=== PATIENT | male | born 1980 | race Caucasian/White ===

== ENCOUNTER 2024-11-12 18:07 | Emergency (ER) | payer MEDICARE ==
[~2024-11-12] VITALS: Ht 175.3 cm; Wt 70.3 kg
[2024-11-12] MEDS ORDERED: Trimethoprim/Sulfamethoxazole DS Tab PO ONE (19:55)
[2024-11-12] MEDS ORDERED: Clindamycin 600mg in D5W 50 ML IV ONE (20:00)
[2024-11-12 20:23] LABS: BASOPHILS ABSOLUTE AUTO 0.02 K/mm3 (0.00-0.23); BASOPHILS PERCENT AUTO 0 % (0-2); EOSINOPHILS ABSOLUTE AUTO 0.11 K/mm3 (0.00-0.68); EOSINOPHILS PERCENT AUTO 2 % (0-6); Hematocrit 35.2 % (37.0-53.0); Hemoglobin 11.7 g/dL (13.5-17.5); IMMATURE GRAN ABSOLUTE AUTO 0.01 K/mm3 (0.00-0.10); IMMATURE GRAN PERCENT AUTO 0 % (0-1); LYMPHOCYTES ABSOLUTE AUTO 2.18 K/mm3 (0.84-5.20); LYMPHOCYTES PERCENT AUTO 42 % (21-46); MONOCYTES ABSOLUTE AUTO 0.35 K/mm3 (0.16-1.47); MONOCYTES PERCENT AUTO 7 % (4-13); Mean Corpuscular HGB Conc 33.2 g/dL (31.5-36.5); Mean Corpuscular Volume 89 fL (80-100); NEUTROPHILS ABSOLUTE AUTO 2.48 K/mm3 (1.96-9.15); NEUTROPHILS PERCENT AUTO 48 % (41-73); NRBC ABSOLUTE 0.00 K/mm3 (0.00-0.02); NRBC Auto 0.0 /100 WBC (0.0-0.2); Platelet Count 389 K/mm3 (150-400); RDW Coefficient Variation 13.3 % (11.7-14.2); RDW Standard Deviation 44.0 fL (35.1-46.3)
[2024-11-12 20:43] LABS: Anion Gap 6 mmol/L (3-11); Blood Urea Nitrogen 13 mg/dL (8-24); C-REACTIVE PROTEIN, EXT RANGE <0.290 mg/dL (0.000-0.300); CO2, Blood 26 mmol/L (21-32); Calcium, Blood 8.8 mg/dL (8.5-10.1); Chloride, Blood 106 mmol/L (98-108); Creatinine, Blood 0.66 mg/dL (0.60-1.20); Glucose, Blood 107 mg/dL (70-99); Potassium, Blood 3.8 mmol/L (3.5-5.5); Sodium, Blood 134 mmol/L (136-145)
== END 2024-11-12 21:56 | disposition home or self-care (01) ==
LOC: ER 18:07
PROVIDERS: Emergency Medicine
DX: M86.9 Osteomyelitis, unspecified (principal); L03.011 Cellulitis of right finger; F17.210 Nicotine dependence, cigarettes, uncomplicated
CPT/HCPCS: 10060; 26010; 73140; 80048; 85025; 85651; 86140; 99284-25

== ENCOUNTER 2024-11-14 00:54 | Inpatient (IN) | payer MEDICARE ==
[~2024-11-14] VITALS: Ht 175.3 cm; Wt 65.3 kg
[2024-11-14 03:01] LABS: BASOPHILS ABSOLUTE AUTO 0.02 K/mm3 (0.00-0.23); BASOPHILS PERCENT AUTO 0 % (0-2); EOSINOPHILS ABSOLUTE AUTO 0.09 K/mm3 (0.00-0.68); EOSINOPHILS PERCENT AUTO 2 % (0-6); Hematocrit 36.5 % (37.0-53.0); Hemoglobin 12.4 g/dL (13.5-17.5); IMMATURE GRAN ABSOLUTE AUTO 0.01 K/mm3 (0.00-0.10); IMMATURE GRAN PERCENT AUTO 0 % (0-1); LYMPHOCYTES ABSOLUTE AUTO 1.63 K/mm3 (0.84-5.20); LYMPHOCYTES PERCENT AUTO 33 % (21-46); MONOCYTES ABSOLUTE AUTO 0.38 K/mm3 (0.16-1.47); MONOCYTES PERCENT AUTO 8 % (4-13); Mean Corpuscular HGB Conc 34.0 g/dL (31.5-36.5); Mean Corpuscular Volume 89 fL (80-100); NEUTROPHILS ABSOLUTE AUTO 2.82 K/mm3 (1.96-9.15); NEUTROPHILS PERCENT AUTO 57 % (41-73); NRBC ABSOLUTE 0.00 K/mm3 (0.00-0.02); NRBC Auto 0.0 /100 WBC (0.0-0.2); Platelet Count 385 K/mm3 (150-400); RDW Coefficient Variation 13.2 % (11.7-14.2); RDW Standard Deviation 42.7 fL (35.1-46.3)
[2024-11-14] MEDS ORDERED: NS 1,000 ML IV SCH (03:10)
[2024-11-14] MEDS ORDERED: Vancomycin (Pharmacy Consult) IV PRN (03:15)
[2024-11-14] MEDS ORDERED: Cefepime HCl 2,000 MG in NS 100 ML IV ONE (03:15)
[2024-11-14] MEDS ORDERED: FentaNYL Citrate 50 MCG/ML 2 ML Injection IV PRN (03:15)
[2024-11-14] MEDS ORDERED: Diazepam 5 MG / ML 2ML SYR IV ONE ×2 (03:15→04:40)
[2024-11-14 03:20] LABS: Alanine Aminotransfer (ALT/SGP 32.0 U/L (12-78); Albumin, Blood 3.2 g/dL (3.4-5.0); Albumin/Globulin Ratio 1.0 (0.8-1.8); Anion Gap 5.0 mmol/L (3-11); Aspartate Aminotrans (AST/SGOT 21.0 U/L (12-37); Bilirubin, Total 0.4 mg/dL (0.1-1.0); Blood Urea Nitrogen 7.0 mg/dL (8-24); C-Reactive Protein, High Sens. 0.508 mg/L (0.000-3.000); CO2, Blood 29.0 mmol/L (21-32); Calcium, Blood 8.7 mg/dL (8.5-10.1); Chloride, Blood 110.0 mmol/L (98-108); Creatinine, Blood 0.58 mg/dL (0.60-1.20); Globulin, Blood 3.3 g/dL (2.2-4.0); Glucose, Blood 137.0 mg/dL (70-99); Potassium, Blood 3.6 mmol/L (3.5-5.5); Sodium, Blood 140.0 mmol/L (136-145); Total Protein, Blood 6.5 g/dL (6.4-8.2)
[2024-11-14] MEDS ORDERED: FLU VACC TS2025-26(6MOS UP)/PF 45 MCG/0.5 ML SYRINGE IM SCH (05:00)
[2024-11-14] MEDS ORDERED: Vancomycin (Pharmacy Consult) IV SCH (05:05)
[2024-11-14] MEDS ORDERED: Naloxone HCl 0.4MG / ML 1ML Vial IV PRN (05:05)
[2024-11-14] MEDS ORDERED: Morphine Sulfate 4 MG/1 ML Injection IV PRN (05:05)
[2024-11-14] MEDS ORDERED: HYDROcodone 5-APAP 325 TAB PO PRN (05:05)
[2024-11-14] MEDS ORDERED: Magnesium Hydroxide Conc 10 ML UDC PO PRN (05:05)
[2024-11-14] MEDS ORDERED: Lactobacil 2-S.Thermo-Bifido 1 1 Cap PO SCH (09:00)
[2024-11-14 11:15] LABS: IMMATURE RETIC FRACTION 5.3 % (2.3-16.0); RETIC HGB EQUIVALENT 34.5 pg (28.20-36.60); RETICULOCYTE ABSOLUTE 0.0276 M/mm3 (0.0200-0.1100); RETICULOCYTE COUNT PERCENT 0.7 % (0.50-2.50)
[2024-11-14 12:00] LABS: U Amphetamine Screen Not Detected; U Barbiturate Screen Not Detected; U Benzodiazapine Screen DETECTED; U Buprenorphine Screen Not Detected; U Cannabinoids Screen DETECTED; U Cocaine Screen Not Detected; U Methadone Screen Not Detected; U Methamphetamine Screen Not Detected; U Opiates Screen Not Detected; U Oxycodone Screen Not Detected; U Phencyclidine Screen Not Detected
[2024-11-14 12:23] LABS: Ferritin, Serum 93.0 ng/mL (26-388); Total Iron Binding Capacity 365.0 ug/dL (250-450)
[2024-11-14 15:11] VITALS: BP 123/87
[2024-11-14] MEDS ORDERED: Cyanocobalamin 1000 MCG/ML 1ML Vial IM SCH (17:00)
[2024-11-14] MEDS ORDERED: Ascorbic Acid 250 MG Chew PO SCH (17:00)
[2024-11-14] MEDS ORDERED: Cefepime HCl 2,000 MG in NS 100 ML IV SCH (19:00)
[2024-11-14 19:41] VITALS: BP 130/83
[2024-11-14] MEDS ORDERED: NS 250 ML IV PRN (21:05)
[2024-11-15 04:26] VITALS: BP 109/58
[2024-11-15 06:19] LABS: Hematocrit 36.4 % (37.0-53.0); Hemoglobin 11.8 g/dL (13.5-17.5); Mean Corpuscular HGB Conc 32.4 g/dL (31.5-36.5); Mean Corpuscular Volume 90 fL (80-100); NRBC ABSOLUTE 0.00 K/mm3 (0.00-0.02); NRBC Auto 0.0 /100 WBC (0.0-0.2); Platelet Count 339 K/mm3 (150-400); RDW Coefficient Variation 13.3 % (11.7-14.2); RDW Standard Deviation 44.3 fL (35.1-46.3)
[2024-11-15 06:47] LABS: Anion Gap 4.0 mmol/L (3-11); Blood Urea Nitrogen 15.0 mg/dL (8-24); CO2, Blood 29.0 mmol/L (21-32); Calcium, Blood 8.4 mg/dL (8.5-10.1); Chloride, Blood 109.0 mmol/L (98-108); Creatinine, Blood 0.58 mg/dL (0.60-1.20); Glucose, Blood 117.0 mg/dL (70-99); Potassium, Blood 4.1 mmol/L (3.5-5.5); Sodium, Blood 138.0 mmol/L (136-145)
[2024-11-15 07:36] VITALS: BP 124/81
[2024-11-15 12:46] LABS: Vancomycin, Trough 26.2 ug/mL (5.0-10.0)
[2024-11-15 16:15] VITALS: BP 122/73
[2024-11-15 19:26] VITALS: BP 124/78
[2024-11-15 19:27] VITALS: BP 124/78
[2024-11-16 05:14] LABS: Hematocrit 37.6 % (37.0-53.0); Hemoglobin 12.1 g/dL (13.5-17.5); Mean Corpuscular HGB Conc 32.2 g/dL (31.5-36.5); Mean Corpuscular Volume 92 fL (80-100); NRBC ABSOLUTE 0.00 K/mm3 (0.00-0.02); NRBC Auto 0.0 /100 WBC (0.0-0.2); Platelet Count 346 K/mm3 (150-400); RDW Coefficient Variation 13.3 % (11.7-14.2); RDW Standard Deviation 45.3 fL (35.1-46.3)
[2024-11-16 05:35] LABS: Anion Gap 6.0 mmol/L (3-11); Blood Urea Nitrogen 14.0 mg/dL (8-24); CO2, Blood 28.0 mmol/L (21-32); Calcium, Blood 8.7 mg/dL (8.5-10.1); Chloride, Blood 111.0 mmol/L (98-108); Creatinine, Blood 0.55 mg/dL (0.60-1.20); Glucose, Blood 99.0 mg/dL (70-99); Potassium, Blood 4.1 mmol/L (3.5-5.5); Sodium, Blood 141.0 mmol/L (136-145)
[2024-11-16 07:37] VITALS: BP 111/69
[2024-11-16 14:56] VITALS: BP 120/78
[2024-11-16 17:54] LABS: Vancomycin, Trough 15.6 ug/mL (5.0-10.0)
[2024-11-16 20:37] VITALS: BP 136/82
[2024-11-17] MEDS ORDERED: LORazepam 2 MG/ML 1ML Injection IV ONE (01:50)
[2024-11-17 04:35] VITALS: BP 117/68
[2024-11-17 15:00] VITALS: BP 128/80
[2024-11-17 19:38] VITALS: BP 116/71
[2024-11-18 05:40] VITALS: BP 125/74
[2024-11-18 05:58] LABS: Hematocrit 39.9 % (37.0-53.0); Hemoglobin 12.6 g/dL (13.5-17.5); Mean Corpuscular HGB Conc 31.6 g/dL (31.5-36.5); Mean Corpuscular Volume 95 fL (80-100); NRBC ABSOLUTE 0.00 K/mm3 (0.00-0.02); NRBC Auto 0.0 /100 WBC (0.0-0.2); Platelet Count 303 K/mm3 (150-400); RDW Coefficient Variation 13.5 % (11.7-14.2); RDW Standard Deviation 47.1 fL (35.1-46.3)
[2024-11-18 06:26] LABS: Anion Gap 6 mmol/L (3-11); Blood Urea Nitrogen 21 mg/dL (8-24); CO2, Blood 28 mmol/L (21-32); Calcium, Blood 8.8 mg/dL (8.5-10.1); Chloride, Blood 110 mmol/L (98-108); Creatinine, Blood 0.52 mg/dL (0.60-1.20); Glucose, Blood 110 mg/dL (70-99); Potassium, Blood 4.0 mmol/L (3.5-5.5); Sodium, Blood 140 mmol/L (136-145); Vancomycin, Trough 9.9 ug/mL (5.0-10.0)
[2024-11-18 13:41] LABS: Alanine Aminotransfer (ALT/SGP 41 U/L (12-78); Albumin, Blood 3.4 g/dL (3.4-5.0); Albumin/Globulin Ratio 1.0 (0.8-1.8); Aspartate Aminotrans (AST/SGOT 17 U/L (12-37); Bilirubin, Direct <0.1 mg/dL (0.0-0.3); Bilirubin, Indirect Unable to Calculate mg/dL (0.1-0.7); Bilirubin, Total 0.3 mg/dL (0.1-1.0); Globulin, Blood 3.5 g/dL (2.2-4.0); Total Protein, Blood 6.9 g/dL (6.4-8.2)
[2024-11-18 19:50] VITALS: BP 127/72
[2024-11-18] MEDS ORDERED: Divalproex Sodium 500 MG TABCR PO SCH (21:00)
[2024-11-19] MEDS ORDERED: Cefepime HCl 2,000 MG in NS 100 ML IV SCH (02:00)
[2024-11-19 05:18] VITALS: BP 116/70
[2024-11-19 18:26] VITALS: BP 131/70
[2024-11-19 19:29] VITALS: BP 130/117
[2024-11-20 03:38] VITALS: BP 118/72
[2024-11-20 07:40] VITALS: BP 126/76
[2024-11-20 16:29] VITALS: BP 117/88
[2024-11-20 17:38] LABS: Creatinine, Blood 0.50 mg/dL (0.60-1.20); Vancomycin, Trough 12.7 ug/mL (5.0-10.0)
[2024-11-20 19:49] VITALS: BP 123/65
[2024-11-21] VITALS (12 sets, daily range): BP systolic 103–134; BP diastolic 57–87
[2024-11-21 06:22] LABS: Hematocrit 36.4 % (37.0-53.0); Hemoglobin 11.7 g/dL (13.5-17.5); Mean Corpuscular HGB Conc 32.1 g/dL (31.5-36.5); Mean Corpuscular Volume 92 fL (80-100); NRBC ABSOLUTE 0.00 K/mm3 (0.00-0.02); NRBC Auto 0.0 /100 WBC (0.0-0.2); Platelet Count 271 K/mm3 (150-400); RDW Coefficient Variation 13.6 % (11.7-14.2); RDW Standard Deviation 46.3 fL (35.1-46.3)
[2024-11-21 06:44] LABS: Anion Gap 5.0 mmol/L (3-11); Blood Urea Nitrogen 20.0 mg/dL (8-24); CO2, Blood 27.0 mmol/L (21-32); Calcium, Blood 8.5 mg/dL (8.5-10.1); Chloride, Blood 109.0 mmol/L (98-108); Creatinine, Blood 0.46 mg/dL (0.60-1.20); Glucose, Blood 110.0 mg/dL (70-99); Potassium, Blood 4.2 mmol/L (3.5-5.5); Sodium, Blood 137.0 mmol/L (136-145)
[2024-11-21] MEDS ORDERED: Midazolam HCl 1MG / ML 2ML Vial ONE (13:35)
[2024-11-21] MEDS ORDERED: FentaNYL Citrate 50 MCG/ML 2 ML Injection ONE (13:35)
[2024-11-21] MEDS ORDERED: Ondansetron HCl 2 MG / ML 2ML Vial ONE (13:44)
[2024-11-21] MEDS ORDERED: Dexamethasone Sod Phos 10 MG/ML 1ML VIAL ONE (13:44)
[2024-11-21] MEDS ORDERED: Metoclopramide HCl 5MG / ML 2ML Vial ONE (13:44)
[2024-11-21] MEDS ORDERED: FentaNYL Citrate 50 MCG/ML 2 ML Injection IV PRN ×2 (13:50→13:55)
[2024-11-21] MEDS ORDERED: HYDROmorphone HCl/Pf 1MG SYR IV PRN ×2 (13:50)
[2024-11-21] MEDS ORDERED: Bupivacaine 0.5% HCl 5 MG/ML 30MLVIAL ONE (13:52)
[2024-11-21] MEDS ORDERED: Albuterol 2.5 MG/3 ML VIAL INH PRN (13:55)
[2024-11-21] MEDS ORDERED: Ondansetron HCl 2 MG / ML 2ML Vial IV PRN (13:55)
[2024-11-22 04:53] LABS: BASOPHILS ABSOLUTE AUTO 0.01 K/mm3 (0.00-0.23); BASOPHILS PERCENT AUTO 0 % (0-2); EOSINOPHILS ABSOLUTE AUTO 0.00 K/mm3 (0.00-0.68); EOSINOPHILS PERCENT AUTO 0 % (0-6); Hematocrit 35.2 % (37.0-53.0); Hemoglobin 11.3 g/dL (13.5-17.5); IMMATURE GRAN ABSOLUTE AUTO 0.04 K/mm3 (0.00-0.10); IMMATURE GRAN PERCENT AUTO 0 % (0-1); LYMPHOCYTES ABSOLUTE AUTO 0.99 K/mm3 (0.84-5.20); LYMPHOCYTES PERCENT AUTO 11 % (21-46); MONOCYTES ABSOLUTE AUTO 0.68 K/mm3 (0.16-1.47); MONOCYTES PERCENT AUTO 7 % (4-13); Mean Corpuscular HGB Conc 32.1 g/dL (31.5-36.5); Mean Corpuscular Volume 94 fL (80-100); NEUTROPHILS ABSOLUTE AUTO 7.43 K/mm3 (1.96-9.15); NEUTROPHILS PERCENT AUTO 81 % (41-73); NRBC ABSOLUTE 0.00 K/mm3 (0.00-0.02); NRBC Auto 0.0 /100 WBC (0.0-0.2); Platelet Count 301 K/mm3 (150-400); RDW Coefficient Variation 13.6 % (11.7-14.2); RDW Standard Deviation 46.5 fL (35.1-46.3)
[2024-11-22 05:26] LABS: Anion Gap 7.0 mmol/L (3-11); Blood Urea Nitrogen 15.0 mg/dL (8-24); CO2, Blood 26.0 mmol/L (21-32); Calcium, Blood 9.1 mg/dL (8.5-10.1); Chloride, Blood 108.0 mmol/L (98-108); Creatinine, Blood 0.48 mg/dL (0.60-1.20); Glucose, Blood 166.0 mg/dL (70-99); Potassium, Blood 4.0 mmol/L (3.5-5.5); Sodium, Blood 137.0 mmol/L (136-145)
[2024-11-22 07:30] VITALS: BP 130/73
[2024-11-22 20:15] VITALS: BP 126/84
[2024-11-23 05:47] LABS: Vancomycin, Trough 6.9 ug/mL (5.0-10.0)
[2024-11-23 06:26] VITALS: BP 125/75
[2024-11-23 08:43] VITALS: BP 119/80
[2024-11-23 15:55] VITALS: BP 119/83
[2024-11-23 20:45] VITALS: BP 117/63
[2024-11-24 04:27] VITALS: BP 100/60
[2024-11-24 05:26] LABS: BASOPHILS ABSOLUTE AUTO 0.04 K/mm3 (0.00-0.23); BASOPHILS PERCENT AUTO 1 % (0-2); EOSINOPHILS ABSOLUTE AUTO 0.19 K/mm3 (0.00-0.68); EOSINOPHILS PERCENT AUTO 3 % (0-6); Hematocrit 36.3 % (37.0-53.0); Hemoglobin 11.6 g/dL (13.5-17.5); IMMATURE GRAN ABSOLUTE AUTO 0.02 K/mm3 (0.00-0.10); IMMATURE GRAN PERCENT AUTO 0 % (0-1); LYMPHOCYTES ABSOLUTE AUTO 2.04 K/mm3 (0.84-5.20); LYMPHOCYTES PERCENT AUTO 31 % (21-46); MONOCYTES ABSOLUTE AUTO 0.63 K/mm3 (0.16-1.47); MONOCYTES PERCENT AUTO 9 % (4-13); Mean Corpuscular HGB Conc 32.0 g/dL (31.5-36.5); Mean Corpuscular Volume 94 fL (80-100); NEUTROPHILS ABSOLUTE AUTO 3.76 K/mm3 (1.96-9.15); NEUTROPHILS PERCENT AUTO 56 % (41-73); NRBC ABSOLUTE 0.00 K/mm3 (0.00-0.02); NRBC Auto 0.0 /100 WBC (0.0-0.2); Platelet Count 258 K/mm3 (150-400); RDW Coefficient Variation 13.9 % (11.7-14.2); RDW Standard Deviation 48.0 fL (35.1-46.3)
[2024-11-24 06:15] LABS: Anion Gap 6 mmol/L (3-11); Blood Urea Nitrogen 14 mg/dL (8-24); CO2, Blood 30 mmol/L (21-32); Calcium, Blood 8.7 mg/dL (8.5-10.1); Chloride, Blood 109 mmol/L (98-108); Creatinine, Blood 0.51 mg/dL (0.60-1.20); Glucose, Blood 93 mg/dL (70-99); Potassium, Blood 4.9 mmol/L (3.5-5.5); Sodium, Blood 140 mmol/L (136-145); Vancomycin, Trough 10.1 ug/mL (5.0-10.0)
[2024-11-24 07:32] VITALS: BP 123/70
[2024-11-24 15:37] VITALS: BP 129/77
== END 2024-11-24 16:58 | disposition left against medical advice (07) | DRG 513 ==
LOC: ER 00:54 → MEDS 04:58 → ERHOLD 04:58 → MEDS 15:10
PROVIDERS: Emergency Medicine; Family Medicine; Internal Medicine; Psychiatry & Neurology Psychiatry; Student in an Organized Health Care Education/Training Program; ADMIT Internal Medicine
PROC: 3E03329 Introduction of Other Anti-infective into Peripheral Vein, Percutaneous Approach (ICD-10-PCS; principal; 2024-11-14)
PROC: 0X6N0Z3 Detachment at Right Index Finger, Low, Open Approach (ICD-10-PCS; 2024-11-21)
DX: M86.8X4 Other osteomyelitis, hand (principal); F23 Brief psychotic disorder; I96 Gangrene, not elsewhere classified; E86.0 Dehydration; R00.1 Bradycardia, unspecified; Z53.29 Procedure and treatment not carried out because of patient's decision for other reasons; R41.82 Altered mental status, unspecified; E53.8 Deficiency of other specified B group vitamins; D50.9 Iron deficiency anemia, unspecified; F31.9 Bipolar disorder, unspecified; Z78.1 Physical restraint status
CPT/HCPCS: 36415; 73140; 80048; 80053; 80076; 80202; 82565; 82607; 82728; 82746; 83540; 83550; 83605; 85025; 85027; 85045; 85651; 86141; 86592; 87040; 87071; 87075; 87077; 87147; 87186; 87205; 93005; 93010; 94762; 96365; 96366; 96367; 96375; 96376; 99285-25; A9270; J0692; J1100; J2060; J2250; J2405; J2704; J2765; J3010; J3360; J3373; J3420; J7030; J7040; J7050; J7120

== ENCOUNTER 2024-12-05 09:28 | Emergency (ER) | payer MEDICARE ==
[~2024-12-05] VITALS: Ht 175.3 cm; Wt 68.0 kg
[2024-12-05] MEDS ORDERED: CEPH500 PO (10:46)
== END 2024-12-05 11:10 | disposition home or self-care (01) ==
LOC: ER 09:28
DX: L02.416 Cutaneous abscess of left lower limb (principal)
CPT/HCPCS: 99282

== ENCOUNTER 2025-01-03 15:22 | Inpatient (IN) | payer MEDICARE, OTHER ==
[~2025-01-03] VITALS: Ht 180.3 cm; Wt 59.5 kg
[~2025-01-03 15:22] MED LIST: CEPH500 PO
[2025-01-03 16:10] LABS: BASOPHILS ABSOLUTE AUTO 0.03 K/mm3 (0.00-0.23); BASOPHILS PERCENT AUTO 0 % (0-2); EOSINOPHILS ABSOLUTE AUTO 0.01 K/mm3 (0.00-0.68); EOSINOPHILS PERCENT AUTO 0 % (0-6); Hematocrit 42.2 % (37.0-53.0); Hemoglobin 13.2 g/dL (13.5-17.5); IMMATURE GRAN ABSOLUTE AUTO 0.03 K/mm3 (0.00-0.10); IMMATURE GRAN PERCENT AUTO 0 % (0-1); LYMPHOCYTES ABSOLUTE AUTO 1.46 K/mm3 (0.84-5.20); LYMPHOCYTES PERCENT AUTO 12 % (21-46); MONOCYTES ABSOLUTE AUTO 0.71 K/mm3 (0.16-1.47); MONOCYTES PERCENT AUTO 6 % (4-13); Mean Corpuscular HGB Conc 31.3 g/dL (31.5-36.5); Mean Corpuscular Volume 94 fL (80-100); NEUTROPHILS ABSOLUTE AUTO 10.39 K/mm3 (1.96-9.15); NEUTROPHILS PERCENT AUTO 82 % (41-73); NRBC ABSOLUTE 0.00 K/mm3 (0.00-0.02); NRBC Auto 0.0 /100 WBC (0.0-0.2); Platelet Count 265 K/mm3 (150-400); RDW Coefficient Variation 13.8 % (11.7-14.2); RDW Standard Deviation 47.8 fL (35.1-46.3)
[2025-01-03 16:40] LABS: Ethanol (Alcohol), Blood, Med <3 mg/dL; Salicylate <1.7 mg/dL (2.8-20.0)
[2025-01-03 16:43] LABS: Alanine Aminotransfer (ALT/SGP 88 U/L (12-78); Albumin, Blood 4.2 g/dL (3.4-5.0); Albumin/Globulin Ratio 1.2 (0.8-1.8); Anion Gap 11 mmol/L (3-11); Aspartate Aminotrans (AST/SGOT 89 U/L (12-37); Bilirubin, Total 1.2 mg/dL (0.1-1.0); Blood Urea Nitrogen 101 mg/dL (8-24); CO2, Blood 22 mmol/L (21-32); Calcium, Blood 9.2 mg/dL (8.5-10.1); Chloride, Blood 130 mmol/L (98-108); Creatinine, Blood 1.61 mg/dL (0.60-1.20); Globulin, Blood 3.6 g/dL (2.2-4.0); Glucose, Blood 140 mg/dL (70-99); Potassium, Blood 3.4 mmol/L (3.5-5.5); Sodium, Blood 160 mmol/L (136-145); Total Protein, Blood 7.8 g/dL (6.4-8.2)
[2025-01-03 16:44] LABS: Acetaminophen, Random <2.0 ug/mL (10.0-30.0)
[2025-01-03] MEDS ORDERED: Haloperidol Lactate Inj. 5 MG/ML Injection IM ONE (17:05)
[2025-01-03] MEDS ORDERED: LORazepam 2 MG/ML 1ML Injection IM ONE (17:05)
[2025-01-03] MEDS ORDERED: DiphenhydrAMINE HCl 50 MG/ML 1ML Vial IM ONE (17:05)
[2025-01-03 19:28] LABS: Source, Urine Straight Cath
[2025-01-03 19:28] LABS: Anion Gap 6.0 mmol/L (3-11); Blood Urea Nitrogen 83.0 mg/dL (8-24); CO2, Blood 26.0 mmol/L (21-32); Calcium, Blood 8.9 mg/dL (8.5-10.1); Chloride, Blood 133.0 mmol/L (98-108); Creatinine, Blood 1.25 mg/dL (0.60-1.20); Glucose, Blood 104.0 mg/dL (70-99); Potassium, Blood 3.7 mmol/L (3.5-5.5)
[2025-01-03 19:30] LABS: Sodium, Blood 161.0 mmol/L (136-145)
[2025-01-03 19:32] LABS: Bilirubin, Urine Neg (Neg); Color, Urine Yellow (P-Yellow); Glucose Qualitative, Urine Neg (Neg); Ketones, Urine 1+ (Neg); Leukocyte Esterase, Urine Neg (Neg); Protein, Urine 2+ (Neg); Specific Gravity, Urine 1.020 (1.003-1.022); Urobilinogen, Urine NORM (Normal)
[2025-01-03] MEDS ORDERED: Haloperidol Lactate Inj. 5 MG/ML Injection IV PRN (19:35)
[2025-01-03] MEDS ORDERED: FLU VACC TS2025-26(6MOS UP)/PF 45 MCG/0.5 ML SYRINGE IM ONE (19:35)
[2025-01-03] MEDS ORDERED: LORazepam 2 MG/ML 1ML Injection IV PRN (19:35)
[2025-01-03] MEDS ORDERED: D5W-1/2NS 1,000 ML IV SCH (19:35)
[2025-01-03 19:45] LABS: U Amphetamine Screen Not Detected; U Barbiturate Screen Not Detected; U Benzodiazapine Screen Not Detected; U Buprenorphine Screen Not Detected; U Cannabinoids Screen Not Detected; U Cocaine Screen Not Detected; U Methadone Screen Not Detected; U Methamphetamine Screen Not Detected; U Opiates Screen Not Detected; U Oxycodone Screen Not Detected; U Phencyclidine Screen Not Detected
[2025-01-03 19:51] LABS: White Blood Cells, Urine 0-2 /hpf (0-5)
[2025-01-03 21:21] VITALS: BP 140/93
--- NOTE | 2025-01-03 23:22 | NUR ---
ASSUMPTION OF CARE: PT ARRIVED ON UNIT AT 2109. PT IN BILATERAL WRIST RESTRIANTS UPON ARRIVAL TO UNIT. BILATERAL WRIST RESTRAINTS REMOVED. 1:1 SITTER. PT RESPONDS TO VERBAL STIMULI WITH BRIEF EYE OPENING AND OCCASIONALLY MOANING. BP STABLE. SB 50S-60S. MAINTAINING >92% ON RA. ETCO2 MONITOR APPLIED. MASS NOTED ON R TEMPORAL LOBE. MD MADE AWARE AND CAME TO BEDSIDE TO ASSESS. CONFIRMED WITH MD REGARDING D5W AT A RATE OF 200 ML/HR. MD ORDERED HEAD CT. DUDLEY IN PLACE. MINIMAL URINE OUTPUT. MD MADE AWARE AND INSTRUCTED TO BLADDER SCAN. BLADDER SCAN AMOUNT OF 237 ML. FLUSHED DUDLEY WITH STERILE SALINE. FLUSHED W/O RESISTANCE. SMALL AMOUNT OF URINE NOTED IN TUBING. NO BLOOD NOTED. PT TO REMAIN BEDREST D/T AMS. Q2 REPOSITIONING. BED IS LOW AND LOCKED. CALL LIGHT WITHIN REACH. SITTER IN ROOM.
[2025-01-04 00:27] VITALS: BP 141/66
--- NOTE | 2025-01-04 03:12 | NUR ---
PROVIDER COMMUNICATION: PROVIDER CONTACTED D/T CRITICAL VALUE OF SODIUM AT 162. PT HAS RECEIVED 2L OF LR IN ED AND 1L OF D5W AT 200ML/HR. PROVIDER CAME TO BEDSIDE TO ASSESS PT AND DISCUSS PLAN OF CARE. PROVIDER INSTRUCTED TO CONTINUE D5W @ 200ML/HR AND ORDERED URINE OSMOLALITY. URINE SAMPLE SENT COLLECTED AND SENT TO LAB. CONTINUE Q3 SODIUM CHECKS.
[2025-01-04 03:53] VITALS: BP 147/93
[2025-01-04 04:14] LABS: BASOPHILS ABSOLUTE AUTO 0.02 K/mm3 (0.00-0.23); BASOPHILS PERCENT AUTO 0 % (0-2); EOSINOPHILS ABSOLUTE AUTO 0.07 K/mm3 (0.00-0.68); EOSINOPHILS PERCENT AUTO 1 % (0-6); Hematocrit 38.0 % (37.0-53.0); Hemoglobin 12.1 g/dL (13.5-17.5); IMMATURE GRAN ABSOLUTE AUTO 0.03 K/mm3 (0.00-0.10); IMMATURE GRAN PERCENT AUTO 0 % (0-1); LYMPHOCYTES ABSOLUTE AUTO 1.50 K/mm3 (0.84-5.20); LYMPHOCYTES PERCENT AUTO 15 % (21-46); MONOCYTES ABSOLUTE AUTO 0.75 K/mm3 (0.16-1.47); MONOCYTES PERCENT AUTO 7 % (4-13); Mean Corpuscular HGB Conc 31.8 g/dL (31.5-36.5); Mean Corpuscular Volume 95 fL (80-100); NEUTROPHILS ABSOLUTE AUTO 7.70 K/mm3 (1.96-9.15); NEUTROPHILS PERCENT AUTO 77 % (41-73); NRBC ABSOLUTE 0.00 K/mm3 (0.00-0.02); NRBC Auto 0.0 /100 WBC (0.0-0.2); Platelet Count 206 K/mm3 (150-400); RDW Coefficient Variation 14.2 % (11.7-14.2); RDW Standard Deviation 48.9 fL (35.1-46.3)
[2025-01-04 04:44] LABS: Magnesium, Blood 3.4 mg/dL (1.6-2.4)
[2025-01-04 04:45] LABS: Alanine Aminotransfer (ALT/SGP 72.0 U/L (12-78); Albumin, Blood 3.3 g/dL (3.4-5.0); Albumin/Globulin Ratio 1.1 (0.8-1.8); Anion Gap 6.0 mmol/L (3-11); Aspartate Aminotrans (AST/SGOT 82.0 U/L (12-37); Bilirubin, Total 0.8 mg/dL (0.1-1.0); Blood Urea Nitrogen 65.0 mg/dL (8-24); CO2, Blood 26.0 mmol/L (21-32); Calcium, Blood 8.5 mg/dL (8.5-10.1); Chloride, Blood 132.0 mmol/L (98-108); Creatinine, Blood 0.95 mg/dL (0.60-1.20); Globulin, Blood 3.1 g/dL (2.2-4.0); Glucose, Blood 134.0 mg/dL (70-99); Potassium, Blood 3.4 mmol/L (3.5-5.5); Sodium, Blood 161.0 mmol/L (136-145); Total Protein, Blood 6.4 g/dL (6.4-8.2)
--- NOTE | 2025-01-04 06:17 | NUR ---
SHIFT SUMMARY: PT OBTUNDED UPON ARRIVAL TO UNIT AND ONLY RESPONDED TO PAINFUL STIMULI WITH BRIEF EYE OPENING AND OCCASIONAL MOANING. PT ARRIVED IN BILATERAL SOFT RESTRAINTS. RESTRAINTS REMOVED AND SITTER IN ROOM. PT CURRENTLY RESPONDS TO VERBAL STIMULI AND ORIENTED TO SELF ONLY. PT HAS MUMBLED SPEECH AND BECOMES AGITATED AND IRRITABLE WITH CARE. PT PULLS BLANKETS OVER HIMSELF WHEN TRYING TO PROVIDE CARE. Q3 SODIUM CHECKS. NA: 161 AND MD AWARE. NO NEW ORDERS AT THIS TIME. D5W INFUSING @ 200 ML/HR. MULTIPLE WOUNDS T/O. SEE CHARTING. MD CAME TO BEDSIDE TO ASSESS WOUND ON INDEX FINGER. NO NEW ORDERS AT THIS TIME. PT REMAINS BEDREST AND NPO D/T MENTATION. DUDLEY IN PLACE DRAINING TO GRAVITY. BED IS LOW AND LOCKED. CALL LIGHT WITHIN REACH. CONTINUE WITH CURRENT PLAN OF CARE.
[2025-01-04] MEDS ORDERED: Potassium Chl 20MEQ/Water100ML 100 ML IV ONE (06:30)
[2025-01-04 07:40] VITALS: BP 121/93
[2025-01-04 08:53] LABS: Anion Gap 6.0 mmol/L (3-11); Blood Urea Nitrogen 54.0 mg/dL (8-24); CO2, Blood 27.0 mmol/L (21-32); Calcium, Blood 8.7 mg/dL (8.5-10.1); Chloride, Blood 130.0 mmol/L (98-108); Creatinine, Blood 0.88 mg/dL (0.60-1.20); Glucose, Blood 115.0 mg/dL (70-99); Potassium, Blood 3.8 mmol/L (3.5-5.5); Sodium, Blood 159.0 mmol/L (136-145)
[2025-01-04] MEDS ORDERED: Enoxaparin 40 MG/0.4 ML SYR SC SCH (09:00)
[2025-01-04 11:44] VITALS: BP 126/82
[2025-01-04 11:58] LABS: Anion Gap 6.0 mmol/L (3-11); Blood Urea Nitrogen 44.0 mg/dL (8-24); CO2, Blood 28.0 mmol/L (21-32); Calcium, Blood 8.3 mg/dL (8.5-10.1); Chloride, Blood 127.0 mmol/L (98-108); Creatinine, Blood 0.86 mg/dL (0.60-1.20); Glucose, Blood 129.0 mg/dL (70-99); Potassium, Blood 3.5 mmol/L (3.5-5.5); Sodium, Blood 157.0 mmol/L (136-145)
[2025-01-04 13:02] LABS: Magnesium, Blood 2.9 mg/dL (1.6-2.4); Phosphorus, Blood 1.9 mg/dL (2.5-4.9)
[2025-01-04 16:06] VITALS: BP 140/89
[2025-01-04 17:03] LABS: Anion Gap 4.0 mmol/L (3-11); Blood Urea Nitrogen 33.0 mg/dL (8-24); CO2, Blood 28.0 mmol/L (21-32); Calcium, Blood 8.3 mg/dL (8.5-10.1); Chloride, Blood 122.0 mmol/L (98-108); Creatinine, Blood 0.81 mg/dL (0.60-1.20); Glucose, Blood 133.0 mg/dL (70-99); Potassium, Blood 3.4 mmol/L (3.5-5.5); Sodium, Blood 151.0 mmol/L (136-145)
--- NOTE | 2025-01-04 17:40 | NUR ---
PT SUMMARY; SODIUM LEVEL NOW TRENDED DOWN TO 151. D5W AT 200MLS/HR NOW DC'D. POTASSIUM REPLACED WITH IV 40MEQ AT THIS TIME. PT WAS LETHARGIC AND OBTUNDED THIS MORNING RESPONSIVE TO VERBAL STIMULI MUMBLED SPEECH. A LITTLE AGITATED WHEN DISTURBED NEEDING IV ATIVAN WHILE PLACING POWERGLIDE ON CHEPE. COMBATIVE KICIKING AND HITTING. PT WAS REORIENTED AND FELL BACK TO SLEEP. PT HAS BEEN SLEEPING MOST OF THE SHIFT, AFTER LUNCH TIME PT WOKE UP ASKING FOR FOOD. PT WAS ABLE TO TOLERATE DRINKS AND JELLO AND PUDDING FOLLOWED BY SANDWICH. PT ABLE TO FEED HIMSELF DINNER. PT REMAINED BEDREST WITH 1;1 SITTER. VITALS HAS BEEN STABLE. NO OTHER ISSUES AT THIS TIME, WILL REPORT TO ONCOMIGN SHIFT
[2025-01-04 19:36] VITALS: BP 117/94
[2025-01-04 20:10] LABS: Anion Gap 4.0 mmol/L (3-11); Blood Urea Nitrogen 29.0 mg/dL (8-24); CO2, Blood 28.0 mmol/L (21-32); Calcium, Blood 8.3 mg/dL (8.5-10.1); Chloride, Blood 120.0 mmol/L (98-108); Creatinine, Blood 0.74 mg/dL (0.60-1.20); Glucose, Blood 111.0 mg/dL (70-99); Potassium, Blood 3.3 mmol/L (3.5-5.5); Sodium, Blood 149.0 mmol/L (136-145)
[2025-01-05 00:41] VITALS: BP 139/84
--- NOTE | 2025-01-05 00:44 | NUR ---
DR REBOLLAR NOTIFIED OF TEMP 101.1. PENDING NEW ORDERS AT THIS TIME.
--- NOTE | 2025-01-05 06:16 | NUR ---
SHIFT SUMMARY: PT A&OX2 TO SELF AND DATE ONLY. BP AND HR STABLE. MAINTAINING >92% ON RA. PT BECAME FEBRILE AND MD AWARE. MD ORDERED CHEST XRAY AND PRN TYLENOL. MEDICATED PER EMAR. DUDLEY IN PLACE AND DRAINING TO GRAVITY. ADEQUATE URINE OUTPUT. PT TURNS SELF IN BED. PT TOLERATING DIET. NOTABLE FACIAL SWELLING ON CHEEK/BACK SIDE OF NECK. MD AWARE AND AWAITNING ORDERS. DENIES HAVING TROUBLE BREATHING. PT REMAINED BEDREST D/T MENTATION. TURNS SELF IN BED. 1:1 SITTER. BED IS LOW AND LOCKED. CALL LIGHT WITHIN REACH.
--- NOTE | 2025-01-05 07:15 | NUR ---
MD AT BEDSIDE MD CAME TO BEDSIDE TO ASSESS FACIAL AND NECK SWELLING. ORDERED STAT HEAD AND NECK SOFT TISSUE CT. REPORT GIVEN TO DAY SHIFT NURSE.
[2025-01-05 07:22] VITALS: BP 143/85
--- NOTE | 2025-01-05 07:22 | NUR ---
ADRIEL IS ALERT AND ORIENTED X2-3, TO SELF, LOCATION NOT ABLE TO GIVE DATE. ADRIEL IS ABLE TO BE AROUSED WITH VOICE. VITAL SIGNS STABLE & AWARE HE WILL BE GOING DOWN FOR IMAGING SHORTLY. ADRIEL HAS CALL LIGHT WITHIN REACH, BED IN LO WEST LOCKED POSITION & SITTER IN THE ROOM.
[2025-01-05] MEDS ORDERED: Potassium Phosphate Dibasic 30 MM in Dextrose 5% 500 ML IV STA (07:26)
--- NOTE | 2025-01-05 09:02 | NUR ---
ROUNDED: MD VARGAS ROUNDED AND WAS ABLE TO SPEAK A LITTLE BIT WITH ADRIEL. ADRIEL MADE AWARE THAT IMAGES WERE DONE AND BLOOD CULTURES WERE TO BE DRAWN, POSSIBLY GOING TO START ANTIBIOTICS & ADRIEL AGREEABLE. MADE AWARE THAT TEMPERATURE HAS GONE DOWN SINCE LAST NIGHT & NOTHING WAS NEEDED FOR IT THIS MORNING. NO NEW ORDERS WERE GIVEN AT THIS TIME.
[2025-01-05 09:16] LABS: BASOPHILS ABSOLUTE AUTO 0.02 K/mm3 (0.00-0.23); BASOPHILS PERCENT AUTO 0 % (0-2); EOSINOPHILS ABSOLUTE AUTO 0.23 K/mm3 (0.00-0.68); EOSINOPHILS ABSOLUTE AUTO 0.24 K/mm3 (0.00-0.68); EOSINOPHILS PERCENT AUTO 2 % (0-6); Hematocrit 43.0 % (37.0-53.0); Hematocrit 43.2 % (37.0-53.0); Hemoglobin 13.6 g/dL (13.5-17.5); Hemoglobin 13.7 g/dL (13.5-17.5); IMMATURE GRAN ABSOLUTE AUTO 0.04 K/mm3 (0.00-0.10); IMMATURE GRAN ABSOLUTE AUTO 0.05 K/mm3 (0.00-0.10); IMMATURE GRAN PERCENT AUTO 0 % (0-1); LYMPHOCYTES ABSOLUTE AUTO 1.43 K/mm3 (0.84-5.20); LYMPHOCYTES ABSOLUTE AUTO 1.46 K/mm3 (0.84-5.20); LYMPHOCYTES PERCENT AUTO 10 % (21-46); LYMPHOCYTES PERCENT AUTO 11 % (21-46); MONOCYTES ABSOLUTE AUTO 0.76 K/mm3 (0.16-1.47); MONOCYTES ABSOLUTE AUTO 0.77 K/mm3 (0.16-1.47); MONOCYTES PERCENT AUTO 6 % (4-13); Mean Corpuscular HGB Conc 31.5 g/dL (31.5-36.5); Mean Corpuscular HGB Conc 31.9 g/dL (31.5-36.5); Mean Corpuscular Volume 94 fL (80-100); NEUTROPHILS ABSOLUTE AUTO 11.29 K/mm3 (1.96-9.15); NEUTROPHILS ABSOLUTE AUTO 11.47 K/mm3 (1.96-9.15); NEUTROPHILS PERCENT AUTO 82 % (41-73); NRBC ABSOLUTE 0.00 K/mm3 (0.00-0.02); NRBC Auto 0.0 /100 WBC (0.0-0.2); Platelet Count 178 K/mm3 (150-400); Platelet Count 180 K/mm3 (150-400); RDW Coefficient Variation 13.8 % (11.7-14.2); RDW Coefficient Variation 13.9 % (11.7-14.2); RDW Standard Deviation 47.3 fL (35.1-46.3); RDW Standard Deviation 47.8 fL (35.1-46.3)
[2025-01-05 09:29] LABS: Anion Gap 7.0 mmol/L (3-11); Blood Urea Nitrogen 20.0 mg/dL (8-24); CO2, Blood 28.0 mmol/L (21-32); Calcium, Blood 8.4 mg/dL (8.5-10.1); Chloride, Blood 114.0 mmol/L (98-108); Creatinine, Blood 0.72 mg/dL (0.60-1.20); Glucose, Blood 135.0 mg/dL (70-99); Potassium, Blood 3.6 mmol/L (3.5-5.5); Sodium, Blood 145.0 mmol/L (136-145)
[2025-01-05 11:02] LABS: Magnesium, Blood 2.3 mg/dL (1.6-2.4); Phosphorus, Blood 2.7 mg/dL (2.5-4.9)
[2025-01-05 11:45] VITALS: BP 149/98
[2025-01-05] MEDS ORDERED: DiphenhydrAMINE HCl 50 MG/ML 1ML Vial IV SCH (12:00)
[2025-01-05] MEDS ORDERED: Ampicillin Sod/Sulbactam Sod 3 GM in NS 100 ML IV SCH (12:00)
[2025-01-05] MEDS ORDERED: Dexamethasone Sodium Phosphate 4 MG/ML 1ML Vial IV SCH (12:00)
[2025-01-05 13:20] LABS: MYOGLOBIN SERUM 2145 ng/mL (<=72)
[2025-01-05 15:07] VITALS: BP 127/86
--- NOTE | 2025-01-05 17:18 | NUR ---
SHIFT SUMMARY: PATIENT IS ALERT AND ORIENTED X 2-3 AT TIMES ABLE TO GIVE DATE & LOCATION AND OTHER TIMES NOT ABLE TO GIVE THE DATE. SATTINIG >92% ON ROOM AIR THROUGHOUT THE DAY. ON TELE SHOWING SINUS RHYTHM IN 70 S-80 S. PATIENT SLEPT MOST OF THE DAY THROUGHOUT THE SHIFT. TEMPERATURE ELEVATED AT ONE POINT THROUGHOUT THE SHIFT WITH 99.9 BEING THE HIGHEST. WAS GIVEN TYLENOL AND TEMPERATURE SLOWLY STARTED TO TREND DOWN AFTER THAT. MD STARTED PATIENT ON ANTI INFLAMMATORY S & THIAMINE WAS INCREASED. PATIENT SITTER WAS REMOVED FPC THROUGHOUT THE SHIFT & BED ALARM WAS PLACED ON. PATIENT WAS ABLE TO EAT SMALL FREQUENT MEALS THROUGHOUT THE DAY. PATIENT HAD A LARGE BOWEL MOVEMENT AT THE START OF SHIFT. CURRENTLY ASLEEP,EVEN AND UNLABORED RESPIRATIONS AT REST. CALL LIGHT WITHIN REACH & BED IN LOWEST LOCKED POSITION.
--- NOTE | 2025-01-05 19:35 | NUR ---
ASSUMPTION OF CARE ASSUMED PT'S CARE AT 1910.PT SITTING UP IN BED EATING.BEDSIDE REPORT COMPLETED,PLAN OF CARE REVIEWED.PT DENIES PAIN,DENIES SOB.PT GIVEN ADDITIONAL SNACKS PER PT'S REQUEST.PT DENIES FURTHER NEEDS.CALL LIGHT AND PT'S ITEMS WITHIN REACH.MONITORING ONGOING PER CAREPLAN.
[2025-01-05 20:40] VITALS: BP 139/98
[2025-01-05] MEDS ORDERED: Lactobacil 2-S.Thermo-Bifido 1 1 Cap PO SCH (21:00)
[2025-01-05 23:20] VITALS: BP 133/90
[2025-01-06 02:47] LABS: BASOPHILS ABSOLUTE AUTO 0.01 K/mm3 (0.00-0.23); BASOPHILS PERCENT AUTO 0 % (0-2); EOSINOPHILS ABSOLUTE AUTO 0.01 K/mm3 (0.00-0.68); EOSINOPHILS PERCENT AUTO 0 % (0-6); Hematocrit 38.4 % (37.0-53.0); Hemoglobin 12.4 g/dL (13.5-17.5); IMMATURE GRAN ABSOLUTE AUTO 0.06 K/mm3 (0.00-0.10); IMMATURE GRAN PERCENT AUTO 0 % (0-1); LYMPHOCYTES ABSOLUTE AUTO 0.55 K/mm3 (0.84-5.20); LYMPHOCYTES PERCENT AUTO 4 % (21-46); MONOCYTES ABSOLUTE AUTO 0.60 K/mm3 (0.16-1.47); MONOCYTES PERCENT AUTO 4 % (4-13); Mean Corpuscular HGB Conc 32.3 g/dL (31.5-36.5); Mean Corpuscular Volume 93 fL (80-100); NEUTROPHILS ABSOLUTE AUTO 12.87 K/mm3 (1.96-9.15); NEUTROPHILS PERCENT AUTO 91 % (41-73); NRBC ABSOLUTE 0.00 K/mm3 (0.00-0.02); NRBC Auto 0.0 /100 WBC (0.0-0.2); Platelet Count 186 K/mm3 (150-400); RDW Coefficient Variation 13.7 % (11.7-14.2); RDW Standard Deviation 46.9 fL (35.1-46.3)
[2025-01-06 03:09] LABS: Alanine Aminotransfer (ALT/SGP 58.0 U/L (12-78); Albumin, Blood 2.4 g/dL (3.4-5.0); Albumin/Globulin Ratio 0.6 (0.8-1.8); Anion Gap 7.0 mmol/L (3-11); Aspartate Aminotrans (AST/SGOT 45.0 U/L (12-37); Bilirubin, Total 0.3 mg/dL (0.1-1.0); Blood Urea Nitrogen 16.0 mg/dL (8-24); CO2, Blood 27.0 mmol/L (21-32); Calcium, Blood 8.4 mg/dL (8.5-10.1); Chloride, Blood 114.0 mmol/L (98-108); Creatinine, Blood 0.66 mg/dL (0.60-1.20); Globulin, Blood 3.8 g/dL (2.2-4.0); Glucose, Blood 217.0 mg/dL (70-99); Magnesium, Blood 2.2 mg/dL (1.6-2.4); Phosphorus, Blood 2.3 mg/dL (2.5-4.9); Potassium, Blood 3.9 mmol/L (3.5-5.5); Sodium, Blood 144.0 mmol/L (136-145); Total Protein, Blood 6.2 g/dL (6.4-8.2)
[2025-01-06 03:26] VITALS: BP 130/85
--- NOTE | 2025-01-06 06:30 | NUR ---
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 PT ATTEMPTED TO GET OUT OF BED TO COME AFTER STAFF,STAFF LEFT HIS ROOM,SECURITY CALLED.PT WENT INTO THE SHOWER,TOOK A SHOWER. NOTIFIED,MIMA FUNG ORDERED.MED ADMINISTERED WHILE SECURITY AT BEDSIDE.PT APPEARED TO CALM DOWN AT 0621,SECURITY LEFT.PT IN ROOM NAKED,FIDGETING WITH THINGS IN ROOM.MONITORING ONGOING PER CAREPLAN.
[2025-01-06 07:35] VITALS: BP 136/92
--- NOTE | 2025-01-06 07:58 | NUR ---
MORNING NOTE: PATIENT IS ALERT AND TALKING WITH STAFF. ADRIEL IS YELLING AT STAFF AND THROWING THINGS OUT INTO THE HALLWAY. PATIENT IS NOT RE-DIRECTABLE AND ASKING FOR CARE TO BE TRANSFFERED. WAS CONTACTED AND CURRENTLY HERE AT BEDSIDE NOW.
--- NOTE | 2025-01-06 09:53 | NUR ---
UPDATE: ADRIEL HAS BEEN GIVEN ORAL MEDICATIONS PER EMAR. PATIENT CONTINUES TO BE HEIGHTED & WALKS OUT INTO THE HALLWAY WITH PERSONAL BELONGINGS AND YELLINIG AT STAFF. MD'S WERE NOTIFIED ALONG WITH PSYCH DOCTOR OUTPATIENT RECEPTIONIST TODAY & AN INVOLUNTARY HOLD WAS PLACED. PATIENT SIGNED & WAS NOTIFIED OF THE SITUATION AT HAND. PATIENT CONTINUES TO YELL & ASK FOR DRINKS THAT ARE SEALED, IS WANTING TO GO DOWN TO THE VENDING MACHINE.
--- NOTE | 2025-01-06 13:44 | NUR ---
MD CONTACTED: THIS RN CALLED MD REGARDING PATIENT BECOMING TO RAMP BACK UP AND WANTING TO WALK THE HALLWAYS. SECURITY HAS BEEN CONTACTED WELL AND OUTSIDE THE DOOR. MD GAVE VERBAL ORDER FOR A ONE TIME DOSE OF ZYPREXA. MD TO TOUCH BASE WITH PSYCH & WILL BE PLACING ORDERS AFTER TOUCHING BASE.
[2025-01-06 14:07] LABS: Thyroid Stimulating Hormone 0.318 uIU/mL (0.360-4.800)
--- NOTE | 2025-01-06 14:47 | NUR ---
CALLED; THIS RN CALLED RESIDENT REGARDING PATIENT WALKING & PACING THE HALLS. HE IS NOW IN PCU 08 AND CONTINUES TO DISTURB THE PATIENTS. MD TO CALL PSYCH DOCTOR ON HOLD FOR FURTHER ORDERS. NO NEW ORDERS AT THIS TIME.
--- NOTE | 2025-01-06 16:59 | NUR ---
SHIFT SUMMARY: PATIENT IS ALERT AND ORIENTED X3 NOT ABLE TO GIVE THE EXACT DATE. IS TALKING TO STAFF, SEE PREVIOUS NOTES FOR MORE INFORMATION. PATIENT DID NOT LET THIS RN DO ANY ASSESSMENTS THORUGHOUT SHIFT BUT IS INDEPENDENT IN THE ROOM, REDIRECTALE AT TIMES AND HAS A SITTER OUTSIDE THE ROOM. PATIENT HAS BEEN TAKING FOOD & DRINKS IF THEY ARE SEALED. PATIENT HAS Q2 MEDICATIONS SCHEDULED AND WILL TAKE PO MEDICATIONS AT THIS TIME. PATIENT IS AWARE THE BATHROOM IS LOCKED AND DOES MAKE NEEDS KNOWN. AT THIS TIME PATIENT IS CALM IN THE ROOM, AND EATING A SNACK. SHORT CALL LIGHT IS CONNECTED IN THE ROOM & BED IS IN LOWEST LOCKED POSITION.
--- NOTE | 2025-01-06 20:04 | NUR ---
Attempted to do an assessment and give medications but pt stated he did not want to talk and wanted to sleep. Put a blanket over his head. There was partial and whole pills sitting on the bedside table that appeared pt possibly spit out. Pills disposed of, room is safe. Sitter present.
--- NOTE | 2025-01-07 05:54 | NUR ---
SHIFT SUMMARY Pt remained very agitated with staff and was often yelling. He is having paranoid delusions. He constantly asks for food and drinks but sometimes throws these things when given them. Large volume UOP in commode as well as on the floor. Unable to complete most assessment as patient would not let staff get close.
[2025-01-07] MEDS ORDERED: LORazepam 2 MG/ML 1ML Injection IM PRN (19:15)
[2025-01-07] MEDS ORDERED: Haloperidol Lactate Inj. 5 MG/ML Injection IM PRN (19:15)
--- NOTE | 2025-01-07 19:18 | NUR ---
PT WITH SUDDEN AGITATION, SCREAMING, YELLING, SPITTING AT STAFF AND TALKING IN TONGUES AROUND 1500. UNABLE TO REDIRECT, MEET NEEDS. THIS RN ATTEMPTED TO OFFER SUPPORT AND PRNS AND PT CONTINUED TO ESCALATE WITH STAFF, THROW THINGS IN ROOM. STAFF RETREATED OUTSIDE THE ROOM DUE TO AGRESSION AND SAFETY CONCERNS. HE WAS LUNGING TOWARDS STAFF. SECURITY CALLED TO BEDSIDE AND COMPENSATION ADMINISTRATOR, ОЛЕГ GOLDBERG, ICU DIRECTOR TRANSLATIONAL ROBY AND MD GLORIA CASTANO AND DR. MATIAS TO BEDSIDE. PT CONTINUED AGITATION AND PO HALDOL, BENADRYL, ATIVAN X2, AND ZYPREXA GIVEN. PT ON PSYCH HOLD AWAITING PLACEMENT, PACKETS SENT TO [facility], [facility], [facility], [facility], [facility], AND [facility]. RECEIVED CALL BACK FROM [facility] AND [facility], PENDING PROVIDER EVAL. NO ACCEPTANCE AT THIS TIME. SPOKE WITH TEAGAN Henriquez CRITICAL RESEARCH LAB ASSISTANT REGARDING CONCERN FOR PT AND STAFF SAFETY DUE TO SUDDEN AGITATION, PSYCHOSIS AND CRISIS. LABILE AND EXTREME MOOD. PER REPORT AND CHART REVIEW IS NOT SUPER REPONSIVE TO MEDICATIONS AND REQUIRES HIGH DOSES AND MULTIPLE. PER TEAGAN SHE PLANS TO SPEAK WITH U DIRECTOR AND REQUESTED COMPENSATION ADMINISTRATOR ОЛЕГ TO SPEAK WITH CNO REGARDING MANAGEMENT. PER ОЛЕГ COMPENSATION ADMINISTRATOR, SPOKE WITH ALISHA KNAPP AND NO PLANS TO TRANSFER TO CRISIS UNIT DUE TO INPATIENT STATUS AND REGULATION, CONTINUE MEDICATIONS AND RECONSULT PSYCH AND PRIMARY HOSPITALIST. SPOKE WITH DR. CASTANO AND DR. KEITA REGARDING PT MANAGEMENT. PER DR. KEITA EMAR NEEDS TO REFLECT BOTH IM AND PO ATIVAN 2MG AND HALDOL 10MG Q2 TO GIVE IM IF PATIENT REFUSES PO. CAN REPEAT IN 20 MINUTES AFTER FIRST DOSE X1 IF INEFFECTIVE FOR AGITATION. CONTINUED SITTER AT BEDSIDE, LOW STIM ENVIRONMENT. ROOM MITIGATED FOR SAFETY DUE TO LABILE MOOD.
--- NOTE | 2025-01-07 20:32 | NUR ---
ASSUMPTION OF CARE ASSUMED CARE OF PT AT APPROXIMATELY 1900. PT RESTING COMFORTABLY IN BED. PT AOX4. COOPERATIVE. DENIES FEELING NEED FOR ANY MEDICATION AT THIS TIME. PT FALLS ASLEEP QUICKLY DURING PAUSES IN CONVERSATION. REFUSED VITAL SIGNS STATING "YOU CAN GET THEM LATER WHEN YOU BRING ME MY MEDS", THOUGH REFUSING MEDS AT THIS TIME. PT GIVEN SNACKS AND GATORADE. BED IN LOWEST AND LOCKED POSITION. SITTER PRESENT. CALL LIGHT WITHIN REACH. NO C/O CHEST PAIN OR PRESSURE. NO C/O SOB.
--- NOTE | 2025-01-08 05:27 | NUR ---
SHIFT SUMMARY PT REFUSED VITALS THIS SHIFT. CONTINUES TO BE LABILE. PT HAD ONE EPISODE OF URINATING IN SINK, ON WALL AND ON FLOOR. DISCUSSED PURPOSE OF BSC WITH PT. PT UTILIZED BSC FOR REMAINDER OF SHIFT. PT UNCOOPERATIVE WITH ORIENTATION QUESTIONS. WOULD ONLY ANSWER ORIENTATION TO SELF AND PLACE. NO C/O CHEST PAIN OR PRESSURE. NO C/O SOB. PT SLEPT FOR MOST OF SHIFT. CALL LIGHT WITHIN REACH. PT INDEPENDENT TO BSC. BED IN LOWEST AND LOCKED POSITION.
[2025-01-08 13:31] LABS: BASOPHILS ABSOLUTE AUTO 0.03 K/mm3 (0.00-0.23); BASOPHILS PERCENT AUTO 0 % (0-2); EOSINOPHILS ABSOLUTE AUTO 0.36 K/mm3 (0.00-0.68); EOSINOPHILS PERCENT AUTO 3 % (0-6); Hematocrit 37.3 % (37.0-53.0); Hemoglobin 12.1 g/dL (13.5-17.5); IMMATURE GRAN ABSOLUTE AUTO 0.14 K/mm3 (0.00-0.10); IMMATURE GRAN PERCENT AUTO 1 % (0-1); LYMPHOCYTES ABSOLUTE AUTO 2.00 K/mm3 (0.84-5.20); LYMPHOCYTES PERCENT AUTO 14 % (21-46); MONOCYTES ABSOLUTE AUTO 1.48 K/mm3 (0.16-1.47); MONOCYTES PERCENT AUTO 11 % (4-13); Mean Corpuscular HGB Conc 32.4 g/dL (31.5-36.5); Mean Corpuscular Volume 92 fL (80-100); NEUTROPHILS ABSOLUTE AUTO 10.09 K/mm3 (1.96-9.15); NEUTROPHILS PERCENT AUTO 72 % (41-73); NRBC ABSOLUTE 0.00 K/mm3 (0.00-0.02); NRBC Auto 0.0 /100 WBC (0.0-0.2); Platelet Count 227 K/mm3 (150-400); RDW Coefficient Variation 13.9 % (11.7-14.2); RDW Standard Deviation 46.3 fL (35.1-46.3)
--- NOTE | 2025-01-08 14:07 | NUR ---
Patient is agitated when I enter the room. He immediately says, "You have nothing to tell me or teach me, I am the teacher. He then talks about his conditions at the group home stating that he was left without food, water or clothes and that he had to sleep naked a couple of nights because he was not given any clothes. He then went on a rant about the hospital saying, "Yo are sending me to a psych medina. I am deemed able to life insurance agent court for myself on January 26 for crimal charges, so if they say I am sane enough to life insurance agent a court of law then the hospital has it all wrong." He goes on to express how offended he is by this suggestion. He also stated that he needs someone to advocate for him so he could be released from the hospital to his room at the [facility]. He stated that if I can not get him to the [facility] then I need to leave, He states, "I am done with you, go away." I leave the room and allow the patient to return to eating the butter squars without food. while having several plate of food on his tray. I will continue to remain available to the patient and family.
[2025-01-08 14:16] LABS: Alanine Aminotransfer (ALT/SGP 77.0 U/L (12-78); Albumin, Blood 2.7 g/dL (3.4-5.0); Albumin/Globulin Ratio 0.7 (0.8-1.8); Anion Gap 10.0 mmol/L (3-11); Aspartate Aminotrans (AST/SGOT 30.0 U/L (12-37); Bilirubin, Total 0.5 mg/dL (0.1-1.0); Blood Urea Nitrogen 9.0 mg/dL (8-24); CO2, Blood 27.0 mmol/L (21-32); Calcium, Blood 8.5 mg/dL (8.5-10.1); Chloride, Blood 102.0 mmol/L (98-108); Creatinine, Blood 0.61 mg/dL (0.60-1.20); Globulin, Blood 4.1 g/dL (2.2-4.0); Glucose, Blood 117.0 mg/dL (70-99); Potassium, Blood 3.9 mmol/L (3.5-5.5); Sodium, Blood 135.0 mmol/L (136-145); Total Protein, Blood 6.8 g/dL (6.4-8.2)
[2025-01-08 16:48] VITALS: BP 136/92
--- NOTE | 2025-01-08 18:35 | NUR ---
SHIFT SUMMARY TRANSFER PATIENT AOX2-3 VERY ARGUMENTATIVE AND AGRESSIVE. HE WAS VERBALY REFUSING TO GO BUT DID END UP COOPERATING WITH SECURITY AND TRANSPORT AND LEFT. HE DID REFUSE SOME CARE TODAY LIKE VITALS AND ASSESSMENTS BUT DID TAKE HIS SCHEDULED MEDS BESIDES HIS DEPEKOTE. REPORT WAS CALLED TO [facility]LE[facility]O AND SECURITY RETURNED HIS BELONGINGS WITH TRANSPORT.
== END 2025-01-08 18:27 | DRG 682 ==
LOC: ER 15:22 → PCU 19:31
PROVIDERS: Internal Medicine; Nurse Practitioner Acute Care; Student in an Organized Health Care Education/Training Program; ADMIT Student in an Organized Health Care Education/Training Program
DX: N17.9 Acute kidney failure, unspecified (principal); A41.9 Sepsis, unspecified organism; G92.8 Other toxic encephalopathy; E87.0 Hyperosmolality and hypernatremia; M62.82 Rhabdomyolysis; E46 Unspecified protein-calorie malnutrition; Z68.1 Body mass index [BMI] 19.9 or less, adult; F31.13 Bipolar disorder, current episode manic without psychotic features, severe; N39.0 Urinary tract infection, site not specified; E86.0 Dehydration; R74.01 Elevation of levels of liver transaminase levels; S00.03XA Contusion of scalp, initial encounter; R22.1 Localized swelling, mass and lump, neck; E83.39 Other disorders of phosphorus metabolism; J98.2 Interstitial emphysema; R94.31 Abnormal electrocardiogram [ECG] [EKG]; E87.6 Hypokalemia; E87.8 Other disorders of electrolyte and fluid balance, not elsewhere classified
CPT/HCPCS: 36415; 51702; 51798; 70450; 70491; 71045; 76770; 80048; 80053; 80320; 81001; 82550; 82947; 83735; 83874; 83935; 84100; 84295; 84443; 85025; 86140; 87040; 93005; 93010; 96360; 96361; 96372; 99285-25; A9270; C1751; G0480; J0295; J1100; J1200; J1650; J2060; J3411; J3480; J7050; J7060; J7070; J7120; Q9967

== ENCOUNTER 2025-01-19 20:47 | Emergency (ER) | payer MEDICARE, OTHER ==
[~2025-01-19] VITALS: Ht 175.3 cm; Wt 67.6 kg
[2025-01-19] MEDS ORDERED: BACTRIM DS TAB1 EAC1 PO (21:13)
[2025-01-19] MEDS ORDERED: Trimethoprim/Sulfamethoxazole DS Tab PO ONE (21:15)
== END 2025-01-19 21:20 | disposition home or self-care (01) ==
LOC: ER 20:47
DX: L02.414 Cutaneous abscess of left upper limb (principal); L02.416 Cutaneous abscess of left lower limb; L03.116 Cellulitis of left lower limb; F17.200 Nicotine dependence, unspecified, uncomplicated
CPT/HCPCS: 99282; A9270

== ENCOUNTER 2025-01-21 06:21 | Emergency (ER) | payer MEDICARE, OTHER ==
[~2025-01-21] VITALS: Ht 175.3 cm; Wt 67.6 kg
[~2025-01-21 06:21] MED LIST changes: +BACTRIM DS TAB1 EAC1 PO
[2025-01-21] MEDS ORDERED: Trimethoprim/Sulfamethoxazole DS Tab PO ONE (07:10)
[2025-01-21] MEDS ORDERED: SULTRIDS PO (07:23)
== END 2025-01-21 11:10 | disposition home or self-care (01) ==
LOC: ER 06:21
DX: L03.116 Cellulitis of left lower limb (principal); F17.200 Nicotine dependence, unspecified, uncomplicated; Z86.14 Personal history of Methicillin resistant Staphylococcus aureus infection
CPT/HCPCS: A9270